=== PATIENT | male | born 1965 | race Caucasian/White ===

== ENCOUNTER 2020-09-09 09:45 | Emergency (ER) | payer SELFPAY ==
[~2020-09-09] VITALS: Ht 185.4 cm; Wt 95.0 kg
[~2020-09-09 09:45] MED LIST: AMLOD/BENAZP1 CA2 PO; AMLODIPINE5 MG OR; AMOXICILLIN500 MG OR; AMOXICILLIN500 MG PO; ANUCORT-HC25 MG RE; ARIXTR1 SC; CIPRO750 MG OR; CIPROFLOXACN500 MG PO; COZAAR50 MG OR; FLEXERIL OR; FLEXERIL PO; HYDROCHLOROT25 MG OR; LORTAB 5 OR; LORTAB 5/3255 MG PO; LORTAB 7.5 OR; LORTAB5 PO; MEDDOSEPAK PO; MELOXICAM7.5 MG PO; NAPROSYN375 MG PO; NAPROSYN500 MG PO; NORVASC PO; NORVASC10 M1 OR; OMEPRAZOLE10 MG PO; OXYCO/APAP1 TA2 OR; OXYCONTIN10 MG OR; PENICILLN VK500 MG PO; PRILOSEC20 MG PO; PRILOSEC20 MG/CAP PO; TRAMADOL HCL50 MG PO; TRIAMINIC COLD & COU PO; ULTRAM50 M1 PO; ULTRAM50 MG OR; ULTRAM50 MG PO; UNKNOWN B/P MED; VANCOMYCIN1000 MG IV; ZOCOR5 MG OR; ZOCOR80 MG OR; [UNRECOGNIZED DRUG - REMARK]
[2020-09-09 12:16] LABS: IMMATURE GRANULOCYTES 0.4 % (0.0-5.0); MEAN CORPUSCULAR HGB 28.3 pG CALC (26.0-32.0); MEAN CORPUSCULAR HGB CONC 32.5 g/dL CAL (32.0-36.0); NEUT# 7.47 thou/uL (1.82-7.42); RED BLOOD COUNT 5.98 mill/uL (4.70-6.10); RED CELL DISTRI WIDTH 13.5 % (11.5-15.5)
[2020-09-09 12:18] LABS: HEMOGLOBIN 16.9 g/dl (14.0-18.0)
[2020-09-09 12:28] LABS: ALBUMIN 4.1 g/dL (3.2-5.0); ALKALINE PHOSPHATASE 94 u/l (38-126); BUN 20 mg/dL (9-20); BUN/CREATININE RATIO 15 (12-20 (CALC)); CARBON DIOXIDE 22 mmol/l (22-30); CHLORIDE 103 mmol/l (95-108); CREATININE 1.3 mg/dL (0.7-1.3); GFR 57 ML/MIN (>=60 (CALC)); GFR FOR AFR.AMER. > 60 ML/MIN (>=60 (CALC)); SODIUM 138 mmol/l (137-146); TOTAL PROTEIN 7.7 g/dL (6.3-8.2)
[2020-09-09 12:29] LABS: ANION GAP 18 (6-22 (CALC)); POTASSIUM 4.6 mmol/l (3.5-5.1); SGOT/AST 35 u/l (17-59)
[2020-09-09 12:40] LABS: MYOGLOBIN 61 ng/mL (0 - 121)
[2020-09-09] MEDS ORDERED: LEVEMIR100 UNIT SC (12:42)
[2020-09-09 13:17] LABS: URINE BILIRUBIN - DIPSTICK NEGATIVE (NEGATIVE); URINE BLOOD DIPSTICK TRACE-LYSED (NEGATIVE); URINE COLOR YELLOW; URINE GLUCOSE - DIPSTICK NEGATIVE (NEGATIVE); URINE KETONE NEGATIVE (NEGATIVE); URINE LEUK ESTERASE NEGATIVE (NEGATIVE); URINE PH 5.5 (4.5-8.0); URINE PROTEIN - DIPSTICK >=300 mg/dL (NEG-TRACE); URINE SPECIFIC GRAVITY 1.025
[2020-09-09 13:20] LABS: URINE NITRITE - DIPSTICK NEGATIVE (Negative)
[2020-09-09 13:35] LABS: URINE WBC 0-2 WBC/hpf (0-5)
[2020-09-09 13:36] LABS: URINE HYALINE CAST FEW lpf (NONE-RARE)
[2020-09-09] MEDS ORDERED: CLONIDINE0.1 MG PO (13:37)
[2020-09-09] MEDS ORDERED: FLONASE AL50 MCG/ACT (13:37)
[2020-09-09 14:12] VITALS: BP 153/96
== END 2020-09-09 14:12 | disposition home or self-care (01) | DRG 149 ==
LOC: ED 09:45
PROVIDERS: Emergency Medicine
DX: R42 Dizziness and giddiness (principal); I10 Essential (primary) hypertension; E11.9 Type 2 diabetes mellitus without complications; F17.200 Nicotine dependence, unspecified, uncomplicated; Z20.822 Contact with and (suspected) exposure to COVID-19

== ENCOUNTER 2020-09-14 01:04 | Emergency (ER) | payer SELFPAY ==
[~2020-09-14 01:04] MED LIST changes: +CLONIDINE0.1 MG PO; +FLONASE AL50 MCG/ACT; +LEVEMIR100 UNIT SC
[2020-09-14 01:47] LABS: IMMATURE GRANULOCYTES 0.6 % (0.0-5.0); MEAN CELL VOLUME 89.8 fL CALC (80.0-100.0); MEAN CORPUSCULAR HGB 28.5 pG CALC (26.0-32.0); MEAN CORPUSCULAR HGB CONC 31.7 g/dL CAL (32.0-36.0); NEUT# 5.01 thou/uL (1.82-7.42); RED BLOOD COUNT 4.99 mill/uL (4.70-6.10); RED CELL DISTRI WIDTH 13.5 % (11.5-15.5)
[2020-09-14 01:56] LABS: ALBUMIN 3.9 g/dL (3.2-5.0); ALKALINE PHOSPHATASE 70 u/l (38-126); ANION GAP 13 (6-22 (CALC)); BUN 25 mg/dL (9-20); BUN/CREATININE RATIO 20 (12-20 (CALC)); CARBON DIOXIDE 26 mmol/l (22-30); CHLORIDE 105 mmol/l (95-108); CREATININE 1.3 mg/dL (0.7-1.3); GFR 57 ML/MIN (>=60 (CALC)); GFR FOR AFR.AMER. > 60 ML/MIN (>=60 (CALC)); POTASSIUM 4.2 mmol/l (3.5-5.1); SGOT/AST 39 u/l (17-59); SODIUM 139 mmol/l (137-146)
[2020-09-14 01:58] LABS: HEMATOCRIT 44.8 % (39.0-50.0); HEMOGLOBIN 14.2 g/dl (14.0-18.0)
[2020-09-14 02:04] LABS: BILIRUBIN, TOTAL 0.2 mg/dL (0.0-1.4)
[2020-09-14 02:10] LABS: ACT PARTIAL THROMBO TIME 23.4 SECONDS (20.0-32.5); PROTHROMBIN TIME 10.7 SECONDS (9.0-12.5)
[2020-09-14 02:54] LABS: URINE BILIRUBIN - DIPSTICK NEGATIVE (NEGATIVE); URINE BLOOD DIPSTICK NEGATIVE (NEGATIVE); URINE COLOR YELLOW; URINE GLUCOSE - DIPSTICK NEGATIVE (NEGATIVE); URINE KETONE NEGATIVE (NEGATIVE); URINE LEUK ESTERASE NEGATIVE (NEGATIVE); URINE PH 6.5 (4.5-8.0); URINE PROTEIN - DIPSTICK 100 mg/dL (NEG-TRACE); URINE SPECIFIC GRAVITY 1.025; URINE UROBILINOGEN - DIPSTICK 0.2 E.U./dL (0.2)
[2020-09-14 02:59] LABS: URINE NITRITE - DIPSTICK NEGATIVE (Negative)
[2020-09-14 03:26] LABS: URINE SQUAMOUS EPITHELIAL CELL FEW EPI/hpf (0-FEW); URINE WBC 0-2 WBC/hpf (0-5)
[2020-09-14 04:10] VITALS: BP 141/86
[2020-09-14] MEDS ORDERED: LISINOP/HCTZ1 TA1 PO (04:12)
== END 2020-09-14 04:30 | disposition home or self-care (01) | DRG 305 ==
LOC: ED 01:04
PROVIDERS: Family Medicine
DX: I10 Essential (primary) hypertension (principal); R51.9 Headache, unspecified; R93.0 Abnormal findings on diagnostic imaging of skull and head, not elsewhere classified; E11.9 Type 2 diabetes mellitus without complications; Z79.4 Long term (current) use of insulin

== ENCOUNTER 2021-07-06 19:21 | Emergency (ER) | payer SELFPAY ==
[~2021-07-06 19:21] MED LIST changes: +LISINOP/HCTZ1 TA1 PO
== END 2021-07-06 21:58 | disposition home or self-care (01) | DRG 951 ==
LOC: ED 19:21 → LWOBS 20:59
DX: Z53.21 Procedure and treatment not carried out due to patient leaving prior to being seen by health care provider (principal)